=== PATIENT | female | born 1940 | race Caucasian/White ===

== ENCOUNTER 2018-05-13 08:01 | Inpatient (IN) ==
[2018-05-13] MEDS ORDERED: MORPHINE 4 MG/1 ML VIAL IV STA ×2 (08:16→09:43)
[2018-05-13] MEDS ORDERED: METOPROLOL TARTRATE 5 MG/5 ML VIAL IV STA (08:16)
[2018-05-13] MEDS ORDERED: ASPIRIN 325 MG TABLET PO STA (08:16)
[2018-05-13] MEDS ORDERED: ONDANSETRON 4 MG/2 ML VIAL IV STA (08:16)
[2018-05-13] MEDS ORDERED: NITROGLYCERIN 2% OINT 1 INCH/GM PACK TOP STA (08:16)
[2018-05-13] MEDS ORDERED: ASPIRIN 325 MG TABLET ONE (08:18)
[2018-05-13] MEDS ORDERED: METOPROLOL TARTRATE 5 MG/5 ML VIAL IV ONE (08:18)
[2018-05-13 08:34] LABS: Basophils # 0.1 10*3/uL (0.0-0.2); Basophils % 0.6 % (0.0-0.8); Eosinophils # 0.2 10*3/uL (0.0-0.87); Eosinophils % 2.1 % (0.00-10.9); Hematocrit 45.4 VOL% (35.7-47.0); Hemoglobin 14.5 GM/DL (12.0-16.0); Immature Granulocytes % 0.6 %; Immature Granulocytes Absolute 0.05 #; Lymphocytes # 1.2 10*3/uL (1.4-4.0); Lymphocytes % 14.4 % (21.3-54.2); Mean Corpuscular HGB Conc 31.9 GM/DL (32-36); Mean Corpuscular Hemoglobin 31 PG (27-34); Mean Corpuscular Volume 96.2 FL (87-102); Mean Platelet Volume 10.2 FL (9.6-12.0); Monocytes # 0.6 10*3/uL (0.11-0.8); Monocytes % 7.1 % (1.7-12.7); Neutrophils # 6.5 10*3/uL (1.4-7.4); Neutrophils % 75.2 % (38.7-73.9); Platelet Count 201 T/CUMM (130-400); Red Blood Count 4.72 MC/CUMM (3.8-5.5); Red Cell Distribution Width 12.7 % (9.3-17.3); White Blood Count 8.6 T/CUMM (4-12)
[2018-05-13 08:44] LABS: INR 0.9; PT Patient Result 10.2 SECS
[2018-05-13 08:57] LABS: Albumin 3.5 G/DL (3.4-5.0); Bilirubin,Total 0.5 MG/DL (0.2-1.0); Calcium 8.4 MG/DL (8.5-10.1); Osmolality,Calculated 284.3 MOS/KG (273-304); Total Protein 6.8 G/DL (6.4-8.3)
[2018-05-13 09:40] LABS: Apearance,Urine CLEAR (Clear); Bacteria,Urine Occasional /HPF (Few); Bilirubin,Urine Negative (Negative); Blood, Urine Negative (Negative); Glucose,Urine (UA) Negative (Negative); Ketones,Urine Negative (Negative); Mucus,Urine Occasional /LPF (Occasional); Nitrite,Urine Negative (Negative); Protein,Urine Negative; RBC,Urine 1 /HPF (0-4); Squamous Epithelial Cell,Urine Occasional /HPF (0-10); Urine Color Yellow (Yellow); Urine Specific Gravity 1.031 (1.001-1.035); Urine Urobilinogen < 2.0 EU/DL (0.2-1.0); WBC,Urine <1 /HPF (0-6)
[2018-05-13] MEDS ORDERED: ENOXAPARIN 80 MG/0.8 ML SYRINGE SUBCUT STA (09:43)
[2018-05-13 09:54] LABS: Barbiturates Screen,Urine Negative (Negative); Benzodiazepines Screen,Urine Negative (Negative); Cannabinoid Screen,Urine Negative (Negative); Opiate Screen,Urine Negative (Negative); Phencyclidine Screen,Urine Negative (Negative)
[2018-05-13] MEDS ORDERED: BISACODYL 5 MG TABLET PO PRN (11:45)
[2018-05-13] MEDS ORDERED: diphenhydrAMINE CAP 25 MG CAPSULE PO PRN (11:45)
[2018-05-13] MEDS ORDERED: ZALEPLON 5 MG CAPSULE PO PRN (11:45)
[2018-05-13] MEDS ORDERED: MAGNESIUM SULF RIDER 4 GM in PREMIX 1 EACH IV PRN (11:45)
[2018-05-13] MEDS ORDERED: ACETAMINOPHEN 325 MG TABLET PO PRN (11:45)
[2018-05-13] MEDS ORDERED: guaiFENesin/DM ER 600-30 MG TABLET PO PRN (11:45)
[2018-05-13] MEDS ORDERED: DOCUSATE SODIUM 100 MG CAPSULE PO PRN (11:45)
[2018-05-13] MEDS ORDERED: MAGNESIUM SULF RIDER 2 GM in PREMIX 1 EACH IV PRN (11:45)
[2018-05-13] MEDS ORDERED: CALCIUM CARBONATE CHEW 500 MG TABLET PO PRN (11:56)
[2018-05-13] MEDS ORDERED: NITROGLYCERIN 2% OINT 1 INCH/GM PACK TOP SCH (12:00)
[2018-05-13] MEDS: SODIUM CHLORIDE 0.45% 1,000 ML IV SCH (12:00)
[2018-05-13] MEDS: ONDANSETRON 4 MG/2 ML VIAL IV PRN ×2 (13:42→17:42)
[2018-05-13 13:54] LABS: CKMB % 17.5 %
[2018-05-13 13:55] LABS: Troponin I 1.76 NG/ML (0.00-0.045)
[2018-05-13] MEDS ORDERED: POTASSIUM CHLORIDE RIDER 10 MEQ in PREMIX 1 EACH IV PRN (13:57)
[2018-05-13] MEDS: METOPROLOL SUCCINATE XL 50 MG TABLET PO SCH (14:16)
[2018-05-13] MEDS: PANTOPRAZOLE 40 MG TABLET PO SCH (14:16)
[2018-05-13] MEDS: MORPHINE 4 MG/1 ML VIAL IV PRN (15:15)
[2018-05-13] MEDS ORDERED: KETOROLAC 30 MG/1 ML VIAL IV PRN (15:37)
[2018-05-13] MEDS ORDERED: NITROGLYCERIN DRIP 50 MG/250 ML BOTTLE IV PRN (15:37)
[2018-05-13] MEDS ORDERED: PROMETHAZINE 25 MG/1 ML VIAL IM PRN (18:53)
[2018-05-13 20:02] LABS: CKMB % 18.8 %
[2018-05-13 20:09] LABS: Troponin I 4.35 NG/ML (0.00-0.045)
[2018-05-13] MEDS: ENOXAPARIN 100 MG/ML SYRINGE SUBCUT SCH (21:50)
[2018-05-13] MEDS: ATORVASTATIN 40 MG TABLET PO SCH (21:50)
[2018-05-14] MEDS: SODIUM CHLORIDE 0.45% 1,000 ML IV SCH ×2 (01:00→20:17)
[2018-05-14] MEDS: ONDANSETRON 4 MG/2 ML VIAL IV PRN (04:14)
[2018-05-14] MEDS: MORPHINE 4 MG/1 ML VIAL IV PRN ×3 (04:14→15:09)
[2018-05-14 05:56] LABS: Basophils % 0.4 % (0.0-0.8); Eosinophils # 0.2 10*3/uL (0.0-0.87); Eosinophils % 1.7 % (0.00-10.9); Immature Granulocytes % 0.4 %; Immature Granulocytes Absolute 0.04 #; Lymphocytes # 1.2 10*3/uL (1.4-4.0); Lymphocytes % 12.3 % (21.3-54.2); Mean Corpuscular HGB Conc 31.8 GM/DL (32-36); Mean Corpuscular Hemoglobin 31 PG (27-34); Mean Corpuscular Volume 97.9 FL (87-102); Monocytes # 0.9 10*3/uL (0.11-0.8); Monocytes % 9.5 % (1.7-12.7); Neutrophils # 7.4 10*3/uL (1.4-7.4); Neutrophils % 75.7 % (38.7-73.9); Red Blood Count 3.88 MC/CUMM (3.8-5.5); Red Cell Distribution Width 12.7 % (9.3-17.3); White Blood Count 9.8 T/CUMM (4-12)
[2018-05-14 06:12] LABS: Calcium 7.7 MG/DL (8.5-10.1); Osmolality,Calculated 281.4 MOS/KG (273-304); Potassium 3.7 MMOL/L (3.5-5.1); Risk Ratio 4.63; VLDL CHOLESTEROL 24.2 MG/DL
[2018-05-14 06:30] LABS: Hemoglobin 12.1 GM/DL (12.0-16.0); Platelet Count 156 T/CUMM (130-400)
[2018-05-14] MEDS: POTASSIUM CHLORIDE RIDER 10 MEQ in PREMIX 1 EACH IV PRN ×2 (08:10→14:00)
[2018-05-14] MEDS ORDERED: diphenhydrAMINE CAP 25 MG CAPSULE PO ONE (09:00)
[2018-05-14] MEDS ORDERED: DIAZEPAM 5 MG TABLET PO ONE (09:00)
[2018-05-14] MEDS: PANTOPRAZOLE 40 MG TABLET PO SCH (09:24)
[2018-05-14] MEDS: ASPIRIN EC 81 MG TABLET PO SCH (09:24)
[2018-05-14] MEDS: METOPROLOL SUCCINATE XL 50 MG TABLET PO SCH (09:24)
[2018-05-14] MEDS ORDERED: LIDOCAINE 1%/EPI INJ 20 ML VIAL ONE (09:32)
[2018-05-14] MEDS ORDERED: HEPARIN/NACL 0.9% 2 UNITS/ML 1,000 ML IV ONE (09:32)
[2018-05-14] MEDS ORDERED: ONDANSETRON 4 MG/2 ML VIAL ONE ×2 (09:47→10:51)
[2018-05-14] MEDS ORDERED: MIDAZOLAM 2 MG/2 ML VIAL ONE (09:55)
[2018-05-14] MEDS ORDERED: fentaNYL 100 MCG/2 ML VIAL ONE (09:55)
[2018-05-14] MEDS ORDERED: TIROFIBAN 5,000 MCG/100 ML PREMIX IV ONE (10:16)
[2018-05-14] MEDS ORDERED: TIROFIBAN 5,000 MCG/100 ML PREMIX IV SCH (10:23)
[2018-05-14] MEDS ORDERED: TICAGRELOR 90 MG TABLET ONE (10:34)
[2018-05-14] MEDS ORDERED: ENOXAPARIN 30 MG/0.3 ML SYRINGE ONE (10:34)
[2018-05-14] MEDS: ENOXAPARIN 100 MG/ML SYRINGE SUBCUT SCH (11:05)
[2018-05-14] MEDS ORDERED: fentaNYL 100 MCG/2 ML VIAL IV PRN (11:13)
[2018-05-14] MEDS ORDERED: methylPREDNISolone SOD SUC 125 MG/2 ML VIAL IV ONE (21:00)
[2018-05-14] MEDS: TICAGRELOR 90 MG TABLET PO SCH (21:24)
[2018-05-14] MEDS: ATORVASTATIN 40 MG TABLET PO SCH (21:24)
[2018-05-15] MEDS: SODIUM CHLORIDE 0.45% 1,000 ML IV SCH (03:36)
[2018-05-15 05:08] LABS: Basophils % 0.1 % (0.0-0.8); Hemoglobin 11.6 GM/DL (12.0-16.0); Immature Granulocytes % 0.6 %; Immature Granulocytes Absolute 0.06 #; Lymphocytes # 0.4 10*3/uL (1.4-4.0); Lymphocytes % 4.4 % (21.3-54.2); Mean Corpuscular HGB Conc 32.2 GM/DL (32-36); Mean Corpuscular Hemoglobin 31 PG (27-34); Mean Platelet Volume 10.6 FL (9.6-12.0); Monocytes # 0.5 10*3/uL (0.11-0.8); Monocytes % 5.1 % (1.7-12.7); Neutrophils # 8.7 10*3/uL (1.4-7.4); Neutrophils % 89.8 % (38.7-73.9); Platelet Count 178 T/CUMM (130-400); Red Blood Count 3.75 MC/CUMM (3.8-5.5); Red Cell Distribution Width 12.7 % (9.3-17.3); White Blood Count 9.7 T/CUMM (4-12)
[2018-05-15 05:24] LABS: Calcium 7.9 MG/DL (8.5-10.1); Osmolality,Calculated 282.3 MOS/KG (273-304); Potassium 4.4 MMOL/L (3.5-5.1)
[2018-05-15 05:30] LABS: Band Neutrophils 1 % (0-10); Hypochromasia 1+; Lymphocytes 4 % (20-55); Platelet Estimate Adequate; Segmented Neutrophils 93 % (50-85); Total Cells Counted 100
[2018-05-15 05:35] LABS: Calcium 7.7 MG/DL (8.5-10.1); Osmolality,Calculated 279.4 MOS/KG (273-304); Potassium 4.4 MMOL/L (3.5-5.1)
[2018-05-15] MEDS ORDERED: methylPREDNISolone 4 MG TABLET PO SCH ×2 (08:00→09:00)
[2018-05-15] MEDS: TICAGRELOR 90 MG TABLET PO SCH ×2 (09:27→21:57)
[2018-05-15] MEDS: ASPIRIN EC 81 MG TABLET PO SCH (09:27)
[2018-05-15] MEDS: PANTOPRAZOLE 40 MG TABLET PO SCH (09:27)
[2018-05-15] MEDS: METOPROLOL SUCCINATE XL 50 MG TABLET PO SCH (10:10)
[2018-05-15] MEDS ORDERED: AMIODARONE INJ 150 MG in DEXTROSE 5% 100 ML IV ONE (14:37)
[2018-05-15] MEDS ORDERED: AMIODARONE INJ 450 MG in DEXTROSE 5% 241 ML IV SCH (15:00)
[2018-05-15] MEDS: ATORVASTATIN 40 MG TABLET PO SCH (21:57)
[2018-05-15] MEDS: AMIODARONE INJ 450 MG in DEXTROSE 5% 241 ML IV SCH (22:01)
[2018-05-16 05:09] LABS: Basophils % 0.2 % (0.0-0.8); Eosinophils # 0.3 10*3/uL (0.0-0.87); Eosinophils % 2.9 % (0.00-10.9); Hematocrit 34.1 VOL% (35.7-47.0); Hemoglobin 11.1 GM/DL (12.0-16.0); Lymphocytes # 1.2 10*3/uL (1.4-4.0); Lymphocytes % 11.5 % (21.3-54.2); Mean Corpuscular HGB Conc 32.6 GM/DL (32-36); Mean Corpuscular Hemoglobin 32 PG (27-34); Mean Corpuscular Volume 96.9 FL (87-102); Mean Platelet Volume 10.7 FL (9.6-12.0); Monocytes # 0.9 10*3/uL (0.11-0.8); Monocytes % 9.2 % (1.7-12.7); Neutrophils # 7.6 10*3/uL (1.4-7.4); Neutrophils % 75.2 % (38.7-73.9); Platelet Count 189 T/CUMM (130-400); Red Blood Count 3.52 MC/CUMM (3.8-5.5); Red Cell Distribution Width 12.9 % (9.3-17.3); White Blood Count 10.1 T/CUMM (4-12)
[2018-05-16 05:25] LABS: Potassium 3.9 MMOL/L (3.5-5.1)
[2018-05-16] MEDS: METOPROLOL SUCCINATE XL 50 MG TABLET PO SCH (10:20)
[2018-05-16] MEDS: PANTOPRAZOLE 40 MG TABLET PO SCH (10:20)
[2018-05-16] MEDS: TICAGRELOR 90 MG TABLET PO SCH ×2 (10:20→21:16)
[2018-05-16] MEDS: ASPIRIN EC 81 MG TABLET PO SCH (10:20)
[2018-05-16] MEDS: AMIODARONE 200 MG TABLET PO SCH ×2 (11:50→21:16)
[2018-05-16] MEDS: AMIODARONE INJ 450 MG in DEXTROSE 5% 241 ML IV SCH (12:02)
[2018-05-16] MEDS: MORPHINE 4 MG/1 ML VIAL IV PRN (12:32)
[2018-05-16] MEDS ORDERED: AMIODARONE 200 MG TABLET PO SCH ×2 (14:00→15:00)
[2018-05-16 18:37] VITALS: BP 127/68
[2018-05-16] MEDS: ATORVASTATIN 40 MG TABLET PO SCH (21:16)
[2018-05-17 05:25] LABS: Calcium 8.2 MG/DL (8.5-10.1); Osmolality,Calculated 283.3 MOS/KG (273-304); Potassium 3.8 MMOL/L (3.5-5.1)
[2018-05-17 05:33] LABS: Basophils % 0.4 % (0.0-0.8); Eosinophils # 0.4 10*3/uL (0.0-0.87); Eosinophils % 3.7 % (0.00-10.9); Hematocrit 29.8 VOL% (35.7-47.0); Hemoglobin 9.7 GM/DL (12.0-16.0); Immature Granulocytes % 0.9 %; Immature Granulocytes Absolute 0.09 #; Mean Corpuscular HGB Conc 32.6 GM/DL (32-36); Mean Corpuscular Hemoglobin 31 PG (27-34); Mean Corpuscular Volume 96.4 FL (87-102); Mean Platelet Volume 10.6 FL (9.6-12.0); Monocytes # 0.8 10*3/uL (0.11-0.8); Monocytes % 7.5 % (1.7-12.7); Neutrophils # 7.9 10*3/uL (1.4-7.4); Neutrophils % 77.5 % (38.7-73.9); Platelet Count 219 T/CUMM (130-400); Red Blood Count 3.09 MC/CUMM (3.8-5.5); Red Cell Distribution Width 12.9 % (9.3-17.3); White Blood Count 10.1 T/CUMM (4-12)
[2018-05-17] MEDS: PANTOPRAZOLE 40 MG TABLET PO SCH (09:11)
[2018-05-17] MEDS: TICAGRELOR 90 MG TABLET PO SCH (09:11)
[2018-05-17] MEDS: METOPROLOL SUCCINATE XL 50 MG TABLET PO SCH (09:11)
[2018-05-17] MEDS: AMIODARONE 200 MG TABLET PO SCH (09:11)
[2018-05-17] MEDS: ASPIRIN EC 81 MG TABLET PO SCH (09:11)
[2018-05-20] MEDS ORDERED: AMIODARONE 200 MG TABLET PO SCH ×2 (09:00)
[2018-05-23] MEDS ORDERED: AMIODARONE 200 MG TABLET PO SCH (09:00)
== END 2018-05-17 12:05 | disposition home or self-care (01) | DRG 247 ==
LOC: N.ED 08:01 → N.EDINP 10:38 → N.CC 11:22
PROVIDERS: ADMIT Internal Medicine Cardiovascular Disease; ATTEND Internal Medicine Cardiovascular Disease
PROC: CLCCHCL (ICD-10-PCS; 2018-05-14 11:15)